=== PATIENT | male | born 1990 | race Caucasian/White ===

== ENCOUNTER 2025-05-06 17:21 | Emergency (ER) | payer BC, SELFPAY ==
[2025-05-06 17:22] VITALS: BMI 34.2
[2025-05-06 17:30] VITALS: BP 151/92
[2025-05-06 17:57] LABS: Hematocrit 45.0 % (39.0-52.0); Hemoglobin 15.0 g/dL (13.0-18.0); Mean Corp Hgb Conc. 33.3 g/dL (33.0-37.0); Mean Corpuscular Volume 85.4 fL (80.0-94.0); Nucleated Red Blood Cells % 0 % (-); Platelet Count 324 10^3/uL (130-400); Red Cell Dist. Width 13.2 % (11.5-14.5)
[2025-05-06 18:01] LABS: Chloride 103 mmol/L (98-107); Potassium 4.6 mmol/L (3.5-5.1); Sodium 136 mmol/L (135-145)
[2025-05-06 18:04] LABS: ALT (SGPT) 21 U/L (0-50); AST (SGOT) 31 U/L (17-59); Albumin 4.8 g/dl (3.5-5.0); Alkaline Phosphatase 70 U/L (38-126); Blood Urea Nitrogen 16 mg/dl (9-20); Calcium 10.0 mg/dl (8.4-10.2); Carbon Dioxide 28 mmol/L (22-30); Glucose 93 mg/dl (70-99); Total Protein 7.5 g/dl (6.3-8.2); eGFR > 60.00
[2025-05-06 18:12] LABS: Troponin I < 0.012 ng/ml
--- NOTE | 2025-05-06 20:03 | ED.GENMED ---
History of Present Illness
General
Chief Complaint: Chest Pain
Source: patient and spouse
Exam Limitations: none
Time Seen by Provider: 05/06/25 19:48
Nursing documentation reviewed up to this point in time: agreed with
History of Present Illness
History of Present Illness:
Note:
CHIEF COMPLAINT(S)
Intermittent chest pain described as a 'pinch.'
HISTORY OF PRESENT ILLNESS
The patient is a 34-year-old male presenting with intermittent chest pain described as a 'pinch' occurring every once in a while. The pain has been present for approximately one week but is not currently present at the time of the interview. The
pain is transient, lasting only a second or two, and does not worsen with activity. The patient reported completing a rigorous workout this morning, consisting of a 7-mile Pel[employer] ride and weight lifting, without experiencing chest pain or shortness
of breath. He denies any worsening or continuous symptoms during physical exertion and has no prior history of heart issues except for a known slight branch block. The patient was reassured as his troponin levels were undetectable, indicating no
heart damage or acute myocardial infarction. An electrophysiological study showed normal renal function, electrolytes, liver function, and cardiac enzymes.
No interventions were mentioned prior to presentation. At the medical facility, a chest X-ray was proposed to further evaluate and ensure the proper placement of thoracic structures. The plan included discharge after the X-ray results, as the
condition does not appear serious.
PHYSICAL EXAM
General: Alert, no acute distress.
Skin: Warm, dry.
Head: Normocephalic, atraumatic.
Neck: Supple, trachea midline.
Eye, ears, nose, mouth, and throat: Oral mucosa moist.
Cardiovascular: Normal peripheral perfusion, No edema.
Respiratory: Respirations are non-labored. clear bilaterally
Gastrointestinal: Abdomen nondistended
Back: Normal range of motion, normal alignment.
Musculoskeletal: Normal range of motion, normal strength.
Neurological: Alert and oriented to person, place, time, and situation, no focal neurological deficits observed.
Psychiatric: Cooperative, appropriate mood & affect.
PROBLEM LIST
Acute:
- Intermittent chest pain
PLAN
- Perform a chest X-ray to assess the thoracic structures.
- Discharge the patient following the X-ray results if no abnormalities are found.
- Follow-up with primary care for further evaluation and management if needed.
DIFFERENTIAL DIAGNOSIS
The Differential Diagnosis includes, in no particular order and is not limited to:
1. Musculoskeletal chest pain
2. Gastroesophageal reflux disease (GERD)
3. Pericarditis
4. Costochondritis
5. Anxiety-related chest pain
6. Pneumothorax
7. Pulmonary embolism
8. Coronary artery disease
9. Myocarditis
10. Aortic dissection
EKG
My independent EKG interpretation is:
- Time of EKG: Not specified
- Rhythm: Normal sinus rhythm
- Heart Rate: Not specified
- MT Interval: Normal
- QRS Duration: Not specified
- QT Interval: Not specified
- [place]: Normal
- Abnormalities Observed: Non-specific intraventricular conduction delay
- ST Segment: Normal
- T Wave: Not specified
- Signs of Ischemia: None observed
SUMMARY OF ENCOUNTER
The patient, a 34-year-old male, presented to the emergency department with intermittent chest pain described as a 'pinch.' The pain was transient and did not worsen with physical activity. A detailed assessment, including an EKG and chest X-ray,
was performed to rule out acute coronary syndrome (ACS) and other serious conditions. The patients troponin levels were undetectable, indicating no heart damage, and the X-ray showed no acute findings. My assessment suggested musculoskeletal chest
pain or gastroesophageal reflux disease (GERD) as the potential causes of the symptoms. Given the low-risk evaluation, and the normal test results, the patient was deemed stable for discharge.
DISPOSITION
Discharge.
ASSESSMENT
Intermittent chest pain likely musculoskeletal in nature or related to gastroesophageal reflux disease (GERD). Acute coronary syndrome (ACS) and pulmonary embolism (PE) ruled out. Considered low risk for aortic dissection.
PLAN
- Discharge the patient with recommendations to follow up with primary care for further evaluation and management as needed.
- Consider outpatient management for potential musculoskeletal chest pain or GERD.
INDEPENDENT REVIEW OF LABS AND INTERPRETATION OF TESTS
- My independent EKG review indicates normal sinus rhythm with a non-specific intraventricular conduction delay, without signs of ischemia.
- My independent interpretation of the chest X-ray indicates no acute findings.
PATIENT EDUCATION AND COUNSELING
The patient was advised on the low risk of their current symptoms and reassured based on the normal test results. Discussed potential causes of chest pain, including musculoskeletal issues and GERD, along with strategies to manage these symptoms.
FOLLOW-UP INSTRUCTIONS
Please follow up with your primary care physician for further evaluation and management.
MEDICAL DECISION MAKING
- Number and Complexity of Problems Addressed: Chronic conditions affecting care include intermittent chest pain. Consideration of differential diagnoses such as musculoskeletal chest pain, gastroesophageal reflux disease (GERD), pericarditis,
costochondritis, anxiety-related chest pain, pneumothorax, pulmonary embolism, coronary artery disease, myocarditis, and aortic dissection.
- Data:
Category 1
- My independent interpretation of EKG: Normal sinus rhythm with a non-specific intraventricular conduction delay and no signs of ischemia.
- My independent interpretation of the chest X-ray: No acute findings.
- Risk: Consideration of Admission/Observation: Escalation of care including admission/observation was considered given the complexity and risk of the patients presenting complaint, exam findings, and/or underlying comorbidities. However,
ultimately, the patient is deemed safe for outpatient management with close follow-up. Reasoning: Work-up is reassuring, does not reveal any acute life/organ threatening processes, patients symptoms well controlled upon reevaluation, reexamination
is reassuring, vitals are stable, patient agreeable with discharge, reliable for follow-up.
DIAGNOSIS
- Musculoskeletal chest pain suspected (ICD-10: R07.9)
- Gastroesophageal reflux disease without esophagitis (ICD-10: K21.9)
Phy Exam
Physical Exam
Physical Exam:
.
Scores
Heart Score for Chest Pain Patients
STEMI patient?: No
History: Slightly or Non-Suspicious
ECG: Normal
Age: </= 45 years
Risk Factors: No Risk Factors
Troponin: </= Normal Limit
Heart Score for Chest Pain Patients: 0
Heart Score Risk: 2.5% MACE over next 6 weeks
Course
Orders/Labs/Results
Orders:
Orders
05/06/25 17:22
Electrocardiogram (*1) Urgent
Reason for Study: Chest Pain
EKG- Treatment ONCE
05/06/25 17:35
CMP [Comprehensive Metabolic Panel] Urgent
Complete Blood Count/With Diff Urgent
Troponin I Urgent
05/06/25 20:02
CR Chest - 2 Views Urgent
Comment:
Reason For Exam: left side chest pain
Abnormal Lab Results
05/06/25
17:35
Absolute Monos (auto) 1.0 H 10^3/uL
(0.1-0.6)
Monocytes % 10.3 H %
(1.7-9.3)
05/06/25 17:35
05/06/25 17:35
Vital Signs
Initial and Last Documented VS:
Initial Vital Signs
Temp Pulse Resp BP Pulse Ox
98.5 F 68 18 151/92 97
05/06/25 17:30 05/06/25 17:30 05/06/25 17:30 05/06/25 17:30 05/06/25 17:30
Last Documented Vital Signs
Temp Pulse Resp BP Pulse Ox
98.3 F 64 16 129/56 96
05/06/25 22:38 05/06/25 22:38 05/06/25 22:38 05/06/25 20:46 05/06/25 22:38
*Pulse Oximetry
SaO2: 97
Oxygen Mode of Delivery: Room air
Patient hypoxic: no
*Critical Care Note
Total Time (30-74mins, 75-104mins- exclusive of procedures): Not Applicable
ED Attending Note
-
Portions of this chart may have been created with voice recognition software.� Occasional wrong word or��sound alike� substitutions may have occurred due to the inherent limitations of voice recognition software.
Discharge Plan
Departure
Patient Disposition: Home (Routine Discharge)
Date of Disposition: 05/06/25
Time of Disposition: 22:19
Patient with high blood pressure during this ER visit?: Yes
Condition: Good
Discharge Problem:
Chest pain
Instructions: Chest Pain PCP Follow Up, BLOOD PRESSURE
Referrals:
Kaylee Mike MD [Family Provider, Family Practice] - Call in 1-3 days for appt
Interventions
Interventions:
*Risk Screen - Suicide Last Done: 05/06/25 22:38
*General Assessment Last Done: 05/06/25 22:37
*Neglect/Abuse Screening Last Done: 05/06/25 22:37
*ED- Fall Risk Assessment Last Done: 05/06/25 22:37
*ED COVID-19 Vaccine History Last Done: 05/06/25 22:37
*Nursing Disposition Last Done: 05/06/25 22:38
ED- Cardiac Assessment Last Done: 05/06/25 20:15
Discharge Date and Time
Discharge Date/Time: 05/06/25 22:39
Print Language: BULGARIAN
[2025-05-06 20:46] VITALS: BP 129/56
== END 2025-05-06 22:39 | disposition home or self-care (01) ==
LOC: EMR 17:21
PROVIDERS: Physician Assistant Medical; EMERGENCY PHYSICIAN Emergency Medicine; FAMILY PHYSICIAN Family Medicine
DX: R07.9 Chest pain, unspecified (principal); R03.0 Elevated blood-pressure reading, without diagnosis of hypertension; I45.4 Nonspecific intraventricular block
CPT/HCPCS: 99284; 71046; 80053; 84484; 85025; 93005